=== PATIENT | male | born 1980 | race Caucasian/White ===

== ENCOUNTER 2018-02-01 23:52 | Emergency (ER) | payer OTHER ==
[2018-02-02] MEDS ORDERED: KETOROLAC 60 MG/2 ML VIAL IM STA
[2018-02-02 00:17] LABS: BILIRUBIN,URINE NEGATIVE (NEGATIVE); GLUCOSE, URINE (UA) NEGATIVE (NEGATIVE); LEUKOCYTE ESTERASE, URINE NEGATIVE (NEGATIVE); OCCULT BLOOD,URINE NEGATIVE (NEGATIVE)
[2018-02-02 00:19] LABS: BASOPHILS # (AUTO) 0.2 10^3/uL (0.0-0.1); BASOPHILS % (AUTO) 1.6 %; EOSINOPHILS # (AUTO) 0.3 10^3/uL (0.0-0.7); EOSINOPHILS % (AUTO) 1.9 %; LYMPHOCYTES # (AUTO) 2.9 10^3/uL (1.5-3.5); MEAN CORPUSCULAR HGB CONC 34.8 g/dL (32.0-36.0); MEAN CORPUSCULAR VOLUME 89.1 fL (80.0-94.0); MEAN PLATELET VOLUME 9.1 fL (7.4-11.4); MONOCYTES # (AUTO) 1.1 10^3/uL (0.0-1.0); MONOCYTES % (AUTO) 7.8 %; NEUTROPHILS # (AUTO) 9.3 10^3/uL (1.5-6.6); NEUTROPHILS % (AUTO) 67.7 %; PLT - PLATELET COUNT 209 10^3/uL (130-450); RED BLOOD COUNT 5.47 10^6/uL (4.70-6.10); RED CELL DISTRIBUTION WIDTH 14.1 % (12.0-15.0); WHITE BLOOD COUNT 13.7 x10^3/uL (4.8-10.8)
[2018-02-02] MEDS ORDERED: KETOROLAC 15 MG/ML VIAL IVP STA (00:20)
[2018-02-02 00:26] LABS: CLARITY,URINE CLEAR (CLEAR)
[2018-02-02 00:28] LABS: BACTERIA,URINE Rare /HPF (None Seen); RBC,URINE 0-5 /HPF (0-5); SQUAMOUS EPITHELIAL CELL,UR NONE SEEN (<= Few)
[2018-02-02 00:29] LABS: MUCUS,URINE Marked Strands
[2018-02-02 00:32] LABS: ALBUMIN 4.2 g/dL (3.2-5.5); ALBUMIN/GLOBULIN RATIO 1.1 (1.0-2.2); BILIRUBIN,TOTAL 1.1 mg/dL (0.2-1.0); CALCIUM 9.1 mg/dL (8.5-10.3); CREATININE 1.3 mg/dL (0.6-1.2); TOTAL PROTEIN 8.1 g/dL (6.7-8.2)
[2018-02-02] MEDS ORDERED: SODIUM CHLORIDE 0.9% 1,000 ML IV ONE ×2 (00:33→02:58)
--- NOTE | 2018-02-02 00:50 | ED Physician Documentation ---
PD HPI ABD PAIN - Stated complaint Stated Complaint: L SIDE PAIN - Chief complaint Chief Complaint: Abd Pain - History obtained from History obtained from: Patient - History of Present Illness Timing - onset: How many days ago (3) Timing - details: Gradual onset, Still present Quality: Cramping, Aching Location: LUQ, LLQ Radiation: Left flank Associated symptoms: Nausea. No: Fever, Vomiting, Diarrhea, Constipation Similar symptoms before: Work up / diagnostics, Treatment Recently seen: Not recently seen - Additional information Additional information: Patient is a 37 year old male presenting to the emergency department for abdominal pain. patient states that the pain has been going on for the last 4 days. patient states that he took an azo with no help. patient reports that he has had pancreatitis in the past and that it did feel a bit like this. Patient states that the etiology of the pancreatitis was unknown. patient reports that he did just come back from a vacation where he was eating out a lot and having a few drinks a day. Review of Systems Constitutional: denies: Fever, Chills GI: reports: Abdominal Pain, Nausea, Constipation. denies: Vomiting, Diarrhea : denies: Dysuria, Frequency, Hematuria Skin: denies: Rash PD PAST MEDICAL HISTORY - Past Medical History Cardiovascular: Hypertension - Past Surgical History Past Surgical History: Yes Ortho: Shoulder arthroplasty - Present Medications Home Medications: Ambulatory Orders Medication Instructions Recorded Confirmed Carboxymethylcellulose Sodium 02/01/18 [Refresh Tears] Naphazoline HCl/Pheniramine 02/01/18 [Naphcon-A Eye Drops] Sildenafil Citrate [Sildenafil] 02/01/18 amLODIPine [Norvasc] 2.5 mg PO DAILY 02/01/18 02/01/18 hydroCHLOROthiazide 1 tab PO DAILY 02/01/18 02/01/18 [Hydrochlorothiazide] Ondansetron Odt [Zofran] 4 mg TL Q6H PRN #14 tablet 02/02/18 Oxycodone HCl/Acetaminophen 1 - 2 each PO Q6H PRN #14 tablet 02/02/18 [Percocet 5-325 mg Tablet] - Allergies Allergies/Adverse Reactions: Allergies Allergy/AdvReac Type Severity Reaction Status Date / Time ampicillin Allergy Unknown Verified 02/01/18 23:58 - Social History Does the pt smoke?: No Smoking Status: Never smoker Does the pt drink ETOH?: Yes Does the pt have substance abuse?: No - Immunizations Immunizations are current?: Yes - POLST Patient has POLST: No PD ED PE NORMAL - Vitals Vital signs reviewed: Yes - General General: Alert and oriented X 3, No acute distress - HEENT HEENT: Atraumatic - Neck Neck: Supple, no meningeal sign - Cardiac Cardiac: RRR - Respiratory Respiratory: No respiratory distress - Abdomen Abdomen: Soft - Derm Derm: Normal color, Warm and dry, No rash - Extremities Extremities: No deformity - Neuro Neuro: Alert and oriented X 3 Eye Opening: Spontaneous Motor: Obeys Commands - Psych Psych: Normal mood PD ED PE EXPANDED - HEENT HEENT: Dry mucous membranes - Abdomen Abdomen: Tender to palpation, LUQ, LLQ Results - Vitals Vitals: Vital Signs - 24 hr 02/01/18 02/02/18 02/02/18 23:57 01:11 02:51 Temperature 36.8 C Heart Rate 86 88 70 Respiratory 16 16 16 Rate Blood Pressure 162/128 H 172/109 H 152/113 H O2 Saturation 99 96 94 02/02/18 04:37 Temperature Heart Rate 70 Respiratory 16 Rate Blood Pressure 155/112 H O2 Saturation 96 Oxygen O2 Source Room air - Labs Labs: Laboratory Tests 02/02/18 02/02/18 02/02/18 00:07 00:07 00:08 WBC 13.7 H RBC 5.47 Hgb 17.0 Hct 48.7 MCV 89.1 MCH 31.0 MCHC 34.8 RDW 14.1 Plt Count 209 MPV 9.1 Neut # (Auto) 9.3 H Lymph # (Auto) 2.9 [place] # (Auto) 1.1 H Eos # (Auto) 0.3 Baso # (Auto) 0.2 H Absolute Nucleated RBC 0.01 Nucleated RBC % 0.1 Sodium 135 Potassium 3.4 L Chloride 97 L Carbon Dioxide 28 Anion Gap 10.0 BUN 15 Creatinine 1.3 H Estimated GFR (MDRD) 62 L Glucose 125 H Calcium 9.1 Total Bilirubin 1.1 H AST 26 ALT 38 Alkaline Phosphatase 51 Total Protein 8.1 Albumin 4.2 Globulin 3.9 Albumin/Globulin Ratio 1.1 Lipase 38 Urine Color ORANGE Urine Clarity CLEAR Urine pH Ur Specific [place] Urine Protein Urine Glucose (UA) NEGATIVE Urine Ketones Urine Occult Blood NEGATIVE Urine Nitrite Urine Bilirubin NEGATIVE Urine Urobilinogen Ur Leukocyte Esterase NEGATIVE Urine RBC 0-5 Urine WBC 0-3 Ur Squamous Epith Cells NONE SEEN Urine Bacteria Rare Urine Mucus Marked Strands Ur Microscopic Review INDICATED Urine Culture Comments Not Reportable - Rads (name of study) ct abd pelvis Radiology: Final report received (findings consistent with pancreatitis no pancreatic necrosis) PD MEDICAL DECISION MAKING - ED course Complexity details: reviewed old records, reviewed results, re-evaluated patient , considered differential, d/w patient ED course: Patient was seen and examined at bedside. IV access was gained and labs were drawn. patient was treated with toradol and a fluid bolus. Imaging was ordered. When patient returned from imaging he was still in pain and was treated with IV morphine. Patient's results were reviewed and were consistent with pancreatitis. patient was given the option of admission vs outpatient. Patient states that he would try outpatient therapy. Patient was treated with a second liter of fluid. - Sepsis Event Vital Signs: Vital Signs - 24 hr 02/01/18 02/02/18 02/02/18 23:57 01:11 02:51 Temperature 36.8 C Heart Rate 86 88 70 Respiratory 16 16 16 Rate Blood Pressure 162/128 H 172/109 H 152/113 H O2 Saturation 99 96 94 02/02/18 04:37 Temperature Heart Rate 70 Respiratory 16 Rate Blood Pressure 155/112 H O2 Saturation 96 Oxygen O2 Source Room air Departure - Departure Disposition: 01 Home, Self Care Clinical Impression: Pancreatitis Condition: Good Instructions: ED Pancreatitis Follow-Up: Avelino Murillo MD [Primary Care Provider] - Within 3 Days Prescriptions: Ondansetron Odt [Zofran] 4 mg TL Q6H PRN #14 tablet PRN Reason: Nausea / Vomiting Oxycodone HCl/Acetaminophen [Percocet 5-325 mg Tablet] 1 - 2 each PO Q6H PRN # 14 tablet PRN Reason: pain Comments: Your symptoms are being caused by pancreatitis. You can try outpatient pain management and hydration but if your symptoms worsen you will need to return to the emergency department for hospitalization.
[2018-02-02] MEDS ORDERED: IOPAMIDOL-300 100 ML VIAL ONE (00:54)
[2018-02-02] MEDS ORDERED: IOPAMIDOL-300 100 ML VIAL IVP ONE (01:02)
[2018-02-02] MEDS ORDERED: MORPHINE 10 MG/ML VIAL IVP STA (01:13)
--- NOTE | 2018-02-02 01:55 | CT Report ---
EXAM: CT ABDOMEN AND PELVIS EXAM DATE: 02/02/2018 01:14 AM. CLINICAL HISTORY: Left lower and left upper quadrant region pain COMPARISONS: None. TECHNIQUE: Routine helical CT imaging was performed through the abdomen and pelvis. IV contrast: 100 mL Isovue-300. Enteric contrast: No. Reconstructions: Coronal and sagittal. In accordance with CT protocol optimization, one or more of the following dose reduction techniques w ere utilized for this exam: automated exposure control, adjustment of mA and/or KV based on patient s ize, or use of iterative reconstructive technique. FINDINGS: ABDOMEN: Liver: Moderate hepatic steatosis. Stomach/Distal Esophagus: No significant abnormality. Gallbladder: Contracted without definite calcified gallstones. Bile Ducts: No significant abnormality. Pancreas: There is fat stranding around the pancreas tail. Normal parenchymal enhancement. Spleen: No significant abnormality. Kidneys: No suspicious solid appearing lesion. A few small parenchymal cysts noted bilaterally. No hy dronephrosis. Adrenals: No significant abnormality. Bowel: No obstruction. Average fecal residual. Appendix: Normal. Lymph Nodes: No pathologically enlarged nodes. Vasculature: Normal caliber aorta. Fluid: No significant free fluid. Abdominal Wall: No significant abnormality. Other: No significant abnormality. PELVIS: Prostate and Seminal Vesicles: No significant abnormality. Bladder: No significant abnormality. Lymph Nodes: No pathologically enlarged nodes. Fluid: No significant free fluid. Other: None. BONES: No suspicious bony lesions. LOWER CHEST: No significant consolidation or effusion. IMPRESSION: 1. Acute pancreatitis affecting the distal body and tail. No organized collection. No evidence of nec rosis. 2. There is no bowel obstruction. Appendix is normal. Average amount of retained colon fecal material . [facility] Referring Provider Line: [phone] SITE ID: [id number]
--- NOTE | 2018-02-02 01:55 | CT Preliminary Report ---
Exam: CT ABDOMEN/PELVIS W/ IMPRESSION: 1. Acute pancreatitis affecting the distal body and tail. No organized collection. No evidence of nec rosis. 2. There is no bowel obstruction. Appendix is normal. Average amount of retained colon fecal material . [facility] SITE ID: [id number]
[2018-02-02 04:38] VITALS: BP 155/112
[2018-02-02] MEDS ORDERED: oxyCODONE/ACET 5/325 Prepack 4 PO STA (04:38)
[2018-02-02] MEDS ORDERED: ONDANSETRON ODT 4 MG Prepack 2 TL PRN (04:38)
== END 2018-02-02 04:46 | disposition home or self-care (01) ==
LOC: ED 23:52
DX: K85.90 Acute pancreatitis without necrosis or infection, unspecified (principal); I10 Essential (primary) hypertension
CPT/HCPCS: 36415; 74177; 80053; 81001; 83690; 85025; 96361; 96374; 96375; 99283; 99284; Q9967; 81003; 87086

== ENCOUNTER 2018-02-02 11:41 | Inpatient (IN) | payer OTHER ==
[2018-02-02 12:42] LABS: BASOPHILS # (AUTO) 0.1 10^3/uL (0.0-0.1); BASOPHILS % (AUTO) 0.5 %; EOSINOPHILS # (AUTO) 0.1 10^3/uL (0.0-0.7); EOSINOPHILS % (AUTO) 0.9 %; HGB - HEMOGLOBIN 16.2 g/dL (14.0-18.0); LYMPHOCYTES # (AUTO) 1.9 10^3/uL (1.5-3.5); LYMPHOCYTES % (AUTO) 12.9 %; MEAN CORPUSCULAR HEMOGLOBIN 30.8 pg (27.0-31.0); MEAN PLATELET VOLUME 8.5 fL (7.4-11.4); MONOCYTES # (AUTO) 1.4 10^3/uL (0.0-1.0); MONOCYTES % (AUTO) 9.3 %; NEUTROPHILS # (AUTO) 11.2 10^3/uL (1.5-6.6); NEUTROPHILS % (AUTO) 76.4 %; PLT - PLATELET COUNT 178 10^3/uL (130-450); RED BLOOD COUNT 5.25 10^6/uL (4.70-6.10); RED CELL DISTRIBUTION WIDTH 13.7 % (12.0-15.0); WHITE BLOOD COUNT 14.7 x10^3/uL (4.8-10.8)
[2018-02-02 12:53] LABS: ALBUMIN/GLOBULIN RATIO 1.1 (1.0-2.2); BILIRUBIN,TOTAL 1.9 mg/dL (0.2-1.0); CALCIUM 8.6 mg/dL (8.5-10.3); TOTAL PROTEIN 7.8 g/dL (6.7-8.2)
[2018-02-02] MEDS ORDERED: ONDANSETRON 4 MG/2 ML VIAL IVP STA (13:22)
[2018-02-02] MEDS ORDERED: SODIUM CHLORIDE 0.9% 1,000 ML IV ONE ×2 (13:22→13:23)
[2018-02-02] MEDS ORDERED: MORPHINE 10 MG/ML VIAL IVP STA (13:23)
--- NOTE | 2018-02-02 13:24 | ED Physician Documentation ---
PD HPI ABD PAIN - Stated complaint Stated Complaint: ABDOMINAL PAIN - Chief complaint Chief Complaint: Abd Pain - History obtained from History obtained from: Patient - History of Present Illness Timing - onset: Today Timing - duration: Days Timing - details: Still present Pain level max: 9 Pain level now: 9 Quality: Aching, Pain Location: Epigastric Radiation: Other (To the mid back) Improved by: Other (Tried taking the percocet this morning without relief) Worsened by: Palpation Associated symptoms: Nausea, Vomiting. No: Fever, Hematemesis, Diarrhea, Constipation, Hematochezia, Dysuria - Additional information Additional information: Patient was seen here last night for same, has a CT scan showing acute pancreatitis. States this occurred approximately 3 years ago and thought to be due to hydrochlorothiazide. He was restarted on hydrochlorothiazide approximately 1 year ago. States his pain became worse today and is not controlled with the pain medication at home. Also has had increased vomiting today despite the Zofran. No fevers. Review of Systems Ten Systems: 10 systems reviewed and negative Constitutional: denies: Fever, Chills Ears: denies: Ear pain Nose: denies: Rhinorrhea / runny nose, Congestion Throat: denies: Sore throat Cardiac: denies: Chest pain / pressure Respiratory: denies: Cough GI: denies: Bloody / black stool : denies: Dysuria Skin: denies: Rash Musculoskeletal: denies: Neck pain, Back pain Neurologic: denies: Headache PD PAST MEDICAL HISTORY - Past Medical History Cardiovascular: Hypertension - Past Surgical History Past Surgical History: Yes Ortho: Shoulder arthroplasty - Present Medications Home Medications: Ambulatory Orders Medication Instructions Recorded Confirmed amLODIPine [Norvasc] 2.5 mg PO DAILY 02/01/18 02/02/18 hydroCHLOROthiazide 25 mg PO DAILY 02/01/18 02/02/18 [Hydrochlorothiazide] Carboxymethylcellulose Sodium 1 drops EACHEYE PRN PRN 02/02/18 02/02/18 [Refresh Tears] Fluticasone [Flonase] 2 sprays SARA DAILY PRN 02/02/18 02/02/18 Loratadine 10 mg PO DAILY 02/02/18 02/02/18 Montelukast Sodium 10 mg PO DAILY 02/02/18 02/02/18 Naphazoline HCl/Pheniramine 1 drops EACHEYE PRN PRN 02/02/18 02/02/18 [Naphcon-A Eye Drops] Omeprazole [Omeprazole] 20 mg PO QDAC 02/02/18 02/02/18 Sildenafil Citrate [Viagra] 50 mg PO PRN PRN 02/02/18 02/02/18 Sodium Chloride [Sodium Chloride] 1 drops EACHEYE PRN PRN 02/02/18 02/02/18 Sodium Chloride [Sodium Chloride] 1 drops EACHEYE PRN PRN 02/02/18 02/02/18 - Allergies Allergies/Adverse Reactions: Allergies Allergy/AdvReac Type Severity Reaction Status Date / Time ampicillin Allergy Unknown Verified 02/02/18 11:57 - Social History Does the pt smoke?: No Smoking Status: Never smoker Does the pt drink ETOH?: Yes Does the pt have substance abuse?: No - Immunizations Immunizations are current?: Yes - POLST Patient has POLST: No PD ED PE NORMAL - Vitals Vital signs reviewed: Yes - General General: Alert and oriented X 3, No acute distress - HEENT HEENT: Moist mucous membranes - Neck Neck: Supple, no meningeal sign - Cardiac Cardiac: RRR - Respiratory Respiratory: No respiratory distress, Clear bilaterally - Abdomen Abdomen: Non distended, Other (Tender palpation epigastric without peritoneal signs) - Derm Derm: Warm and dry - Neuro Neuro: Alert and oriented X 3 - Psych Psych: Normal mood, Normal affect Results - Vitals Vitals: Vital Signs - 24 hr 02/02/18 11:53 Temperature 36.5 C Heart Rate 82 Respiratory 18 Rate Blood Pressure 138/89 H O2 Saturation 98 Oxygen O2 Source Room air - Labs Labs: Laboratory Tests 02/02/18 02/02/18 12:35 12:35 WBC 14.7 H RBC 5.25 Hgb 16.2 Hct 46.2 MCV 88.0 MCH 30.8 MCHC 35.0 RDW 13.7 Plt Count 178 MPV 8.5 Neut # (Auto) 11.2 H Lymph # (Auto) 1.9 [place] # (Auto) 1.4 H Eos # (Auto) 0.1 Baso # (Auto) 0.1 Absolute Nucleated RBC 0.01 Nucleated RBC % 0.0 Sodium 135 Potassium 3.8 Chloride 101 Carbon Dioxide 27 Anion Gap 7.0 BUN 17 Creatinine 1.0 Estimated GFR (MDRD) 84 L Glucose 92 Calcium 8.6 Total Bilirubin 1.9 H AST 20 ALT 32 Alkaline Phosphatase 53 Total Protein 7.8 Albumin 4.0 Globulin 3.8 Albumin/Globulin Ratio 1.1 Lipase 25 PD MEDICAL DECISION MAKING - ED course Complexity details: reviewed old records (last night's ED visit), reviewed results, re-evaluated patient, considered differential, d/w patient, d/w senior recruitment consultant ED course: Patient is a 37-year-old male with CT confirmed pancreatitis last night. Uncontrolled pain and continued vomiting today. Given IV fluids, pain meds and will admit for bowel rest, pain control. He is well-appearing, nontoxic. Discussed the case with Dr. Sanabria, hospitalist who accepts. Possible this is secondary to his hydrochlorothiazide again. This document was made in part using voice recognition software. While efforts are made to proofread this document, sound alike and grammatical errors may occur. - Sepsis Event Vital Signs: Vital Signs - 24 hr 02/02/18 11:53 Temperature 36.5 C Heart Rate 82 Respiratory 18 Rate Blood Pressure 138/89 H O2 Saturation 98 Oxygen O2 Source Room air Departure - Departure Disposition: ED Place in Observation Clinical Impression: Pancreatitis Qualifiers: Chronicity: acute Pancreatitis type: unspecified pancreatitis type Acute pancreatitis complication: no infection or necrosis Qualified Code(s): K85.90 - Acute pancreatitis without necrosis or infection, unspecified Condition: Stable Discharge Date/Time: 02/02/18 14:33
[2018-02-02] MEDS ORDERED: SODIUM CHLORIDE FLUSH 0.9% 10 ML SYRINGE IVP PRN (13:38)
[2018-02-02] MEDS: SODIUM CHLORIDE FLUSH 0.9% 10 ML SYRINGE IVP SCH ×2 (14:26→23:36)
--- NOTE | 2018-02-02 14:44 | HISTORY & PHYSICAL EXAMINATION ---
Chief Complaint - Chief Complaint Chief Complaint: abdominal pain History of Present Illness - Admitted From Admitted From:: ED - History Obtained From Records Reviewed: yes History obtained from: chart review, patient Exam Limitations: none - History of Present Illness HPI Comment/Other: Ghulam Bray is a well-appearing, mildly obese 37-year old male with a past medical history of HTN, fatty liver, GERD, chronic constipation, hemorrhoids, CHARO-wears CPAP at home, thoracic outlet syndrome-chronic numbness in bilateral fingertips, eczema, detached retina, pancreatititis, and erectile dysfunction. From August to October of this year he states that he followed the "keto diet", which sounds similar to the Atkins diet and actually was successful by losing 30 pounds. He just visited his PCP this past for URI symptoms and was prescribed Claritin and flonase spray. He came to the ED last evening after having epigastric abdominal pain, nausea, and vomiting. At first he thought it may have been caused by spicy chili that his made, but this pain was similar to pain that he had ~3 years ago because he also noted it to be radiating to his back side. An abdominal CT was completed in the ED which confirmed pancreatitits and he was sent home with zofran and pain medication. This pain continued and actually became worse after taking the oral medications, so he arrived again in the ED early this morning with the same symptoms accompanied by nausea and vomiting. WBC count was slightly elevated at 14.7, normal lipase, afebrile, mild hypertension at 138 /89, and an elevated bilirubin at 1.9. He will be admitted to observation to manage his symptoms and if he becomes worse a call to our GI team may occur. 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 He lives at home with his and 4 children ages 1,3,6, & 9. He denies current tobacco or illicit drug use. He was dependent on cigarettes from age [age]. He occasionally drinks alcohol, but denies binge drinking. He wishes to be a FULL code. - Substance History Use: Uses substance without health or social issues: NONE Abuse: Recurrent use of substance despite neg consequences: NONE Dependence: Experiences withdrawal or developed tolerances: NONE - POLST Patient has POLST: No POLST Status: Full Code Meds/Allgy - Home Medications Home Medications: Ambulatory Orders Medication Instructions Recorded Confirmed amLODIPine [Norvasc] 2.5 mg PO DAILY 02/01/18 02/02/18 hydroCHLOROthiazide 25 mg PO DAILY 02/01/18 02/02/18 [Hydrochlorothiazide] Carboxymethylcellulose Sodium 1 drops EACHEYE PRN PRN 02/02/18 02/02/18 [Refresh Tears] Fluticasone [Flonase] 2 sprays SARA DAILY PRN 02/02/18 02/02/18 Loratadine 10 mg PO DAILY 02/02/18 02/02/18 Montelukast Sodium 10 mg PO DAILY 02/02/18 02/02/18 Naphazoline HCl/Pheniramine 1 drops EACHEYE PRN PRN 02/02/18 02/02/18 [Naphcon-A Eye Drops] Omeprazole [Omeprazole] 20 mg PO QDAC 02/02/18 02/02/18 Sildenafil Citrate [Viagra] 50 mg PO PRN PRN 02/02/18 02/02/18 Sodium Chloride [Sodium Chloride] 1 drops EACHEYE PRN PRN 02/02/18 02/02/18 Sodium Chloride [Sodium Chloride] 1 drops EACHEYE PRN PRN 02/02/18 02/02/18 - Allergies Allergies/Adverse Reactions: Allergies Allergy/AdvReac Type Severity Reaction Status Date / Time ampicillin Allergy Unknown Verified 02/02/18 11:57 Review of Systems - Constitutional Constitutional: reports: Fatigue, Poor appetite - Eyes Eyes: reports: Other (history of detached retina.) - Ears, Nose & Throat Ears, Nose & Throat: reports: Ear pain, Hearing loss, Nasal congestion, Postnasal drainage - Respiratory Respiratory: reports: Cough - Gastrointestinal Gastrointestinal: reports: Abdominal pain, Abdominal distention, Constipation, Nausea, Vomiting, Reflux/heartburn, Poor appetite - Genitourinary Genitourinary: reports: Sexual dysfunction (history of erectile dysfunction.) - Musculoskeletal Musculoskeletal: reports: Limited range of motion (bilateral shoulders caused by thorasic outlet syndrome.) - Integumentary Integumentary: reports: Other (history of eczema) - All Other Systems All Other Systems: reports: Reviewed and negative Exam - Vital Signs Reviewed Vital Signs: Yes Vital Signs: Vital Signs x48h Temp Pulse Pulse Resp BP BP Pulse Ox 02/02/18 14:35 36.5 C 79 18 146/94 H 99 02/02/18 14:22 76 16 126/84 H 94 - Physical Exam General Appearance: positive: Alert, Moderate distress Eyes Bilateral: positive: Normal inspection, PERRL ENT: positive: Pharynx nml, No signs of dehydration, Pharyngeal erythema, Other (abnormal tympanic membranes, +light relfex and fluid noted behind bilaterally.) Neck: positive: Thyroid nml, No JVD, Lymphadenopathy (R), Lymphadenopathy (L), Stiff neck, Other (large neck circumference.) Respiratory: positive: Chest non-tender, No respiratory distress, Breath sounds nml Cardiovascular: positive: Regular rate & rhythm, No murmur, No gallop Peripheral Pulses: positive: 2+ Abdomen: positive: Tenderness, Abnml bowel sounds, Other Back: positive: Nml inspection Skin: positive: No rash, Warm, Dry Extremities: positive: Non-tender, Full ROM, Nml appearance, No pedal edema, Joint swelling Neurologic/Psychiatric: positive: Oriented x3, CN's nml (2-12), Motor nml, Sensation nml, Mood/affect nml Reflexes: Bicep (R): 3+, Bicep (L): 3+ Conclusion/Plan - Problem List (1) Acute pancreatitis Conclusion/Plan: As per preliminary abdominal CT, this appears to be pancreatitits. I have admitted him to observation in hopes that this will soon pass with IV pain control, and bowel rest. Plan: Continue to treat accordingly and contact general surgery if the patient worsens. Qualifiers: Pancreatitis type: idiopathic (2) Hypertension Conclusion/Plan: The patient is prescribed HCTZ and amlodipine at home for hypertension. Today, his blood pressure is elevated at 126/84. Plan: Hold the HCTZ as thiazides are considered as a possible cause of pancreatitits. I will add the Norvasc possibly in the AM. Qualifiers: Hypertension type: essential hypertension Qualified Code(s): I10 - Essential (primary) hypertension (3) Abdominal pain Conclusion/Plan: The patient rates his abdominal pain as a 9 out of 10 and points to his upper abdomen and left mid abdomen. He states that this began yesterday and was treated in the ED, sent home, and came back early this AM. Plan: treat with IV dilaudid, IV protonix, IV reglan, and scheduled IV tylenol. Continue NPO status. (4) Intractable cyclical vomiting with nausea Conclusion/Plan: The patient has had this accompanied by abdominal pain. He has been given zofran and compazine, but continues to feel nauseated. He denies emesis for the past several hours. Plan: continue IV meds for symptom control. (5) CHARO (obstructive sleep apnea) Conclusion/Plan: The patient states that he has had CHARO for the past 2 years and his is planning on bringing in his home unit. He denies other chronic lung diseases such as asthma, or recent pneumonia. Respiratory care to manage home unit order to ensure safety of use. Plan: Continue home CPAP. Obtain echocardiogram. (6) Chronic sinusitis Conclusion/Plan: Upon exam on admission, the patient is noted to have +light reflex noted on bilateral tympanic membranes, fluid noted behind both. The patient admits to ongoing ear pain and mild hearing loss in his left ear. He uses his home CPAP, and this could be a likely cause. He admits to [facility] his [facility] Plan: Afrin spray x3 days, nasal saline PRN and scheduled Nasonex. Qualifiers: Sinusitis location: unspecified location Qualified Code(s): J32.9 - Chronic sinusitis, unspecified (7) Fatty liver Conclusion/Plan: The patient admits to a history of this and as per abdominal CT report it states there is moderate hepatic steatosis. His biggest risk factor of progression of HUTCHINS is his elevated BMI of 31.2, and increased waist circumference. Plan: Patient should consider a weight loss management program at a later point. - Lab Results Lab results reviewed: Yes Fish Bones: 02/02/18 12:35 02/02/18 12:35 - Diagnostic Imaging Results Diagnostic Imaging Results: positive: Prelim report reviewed, Final report reviewed Diagnostic Imaging Results Comments: EXAM: CT ABDOMEN AND PELVIS EXAM DATE: 02/02/2018 01:14 AM. CLINICAL HISTORY: Left lower and left upper quadrant region pain COMPARISONS: None. TECHNIQUE: Routine helical CT imaging was performed through the abdomen and pelvis. IV contrast: 100 mL Isovue-300. Enteric contrast: No. Reconstructions: Coronal and sagittal. In accordance with CT protocol optimization, one or more of the following dose reduction techniques were utilized for this exam: automated exposure control, adjustment of mA and/or KV based on patient size, or use of iterative reconstructive technique. FINDINGS: ABDOMEN: Liver: Moderate hepatic steatosis. Stomach/Distal Esophagus: No significant abnormality. Gallbladder: Contracted without definite calcified gallstones. Bile Ducts: No significant abnormality. Pancreas: There is fat stranding around the pancreas tail. Normal parenchymal enhancement. Spleen: No significant abnormality. Kidneys: No suspicious solid appearing lesion. A few small parenchymal cysts noted bilaterally. No hydronephrosis. Adrenals: No significant abnormality. Bowel: No obstruction. Average fecal residual. Appendix: Normal. Lymph Nodes: No pathologically enlarged nodes. Vasculature: Normal caliber aorta. Fluid: No significant free fluid. Abdominal Wall: No significant abnormality. Other: No significant abnormality. PELVIS: Prostate and Seminal Vesicles: No significant abnormality. Bladder: No significant abnormality. Lymph Nodes: No pathologically enlarged nodes. Fluid: No significant free fluid. Other: None. BONES: No suspicious bony lesions. LOWER CHEST: No significant consolidation or effusion. IMPRESSION: 1. Acute pancreatitis affecting the distal body and tail. No organized collection. No evidence of necrosis. 2. There is no bowel obstruction. Appendix is normal. Average amount of retained colon fecal material. - EKG Results EKG Interpreted Independently: Yes Core Measures - Anticipated LOS I expect patient to be DC'd or transferred within 96 hours.: Yes - DVT/VTE - Prophylaxis VTE/DVT Device ordered at admit?: Yes VTE/DVT Prophylaxis med ordered at admit?: Yes - Stroke - Rehab Assessment Rehab services assessment to be ordered?: No Not Ordered - Medical Reason: Contraindicated - AMI - Statin at Admit Aspirin Prescribed on Admit: No Not Ordered - Medical Reason: Contraindicated
[2018-02-02] MEDS: METOCLOPRAMIDE 10 MG/2 ML VIAL IVP SCH ×3 (14:59→21:52)
[2018-02-02] MEDS: ACETAMINOPHEN 1,000 MG/100 ML 100 ML IV SCH ×2 (15:01→21:40)
[2018-02-02] MEDS ORDERED: METOCLOPRAMIDE 10 MG/2 ML VIAL ONE (15:08)
[2018-02-02] MEDS ORDERED: SODIUM CHLORIDE 0.65% NASAL SPRAY NAS PRN (15:59)
[2018-02-02] MEDS ORDERED: PSEUDOEPHEDRINE 30 MG TABLET PO PRN (16:00)
[2018-02-02] MEDS: OXYMETAZOLINE NASAL SPRAY NAS SCH ×2 (16:38→21:54)
[2018-02-02] MEDS: SENNA SYRUP 8.8 MG/5 ML UDC PO SCH ×2 (16:39→21:42)
[2018-02-02] MEDS: PANTOPRAZOLE 40 MG VIAL IVP SCH ×2 (16:40→21:43)
[2018-02-02] MEDS: HYDROmorphone 1 MG/ML CARPUJECT IVP PRN ×3 (16:42→21:58)
[2018-02-02] MEDS ORDERED: SODIUM CHLORIDE EACHEYE PRN ×2 (16:51)
[2018-02-02] MEDS ORDERED: CARBOXYMETHYLCELLULOSE SODIUM EACHEYE PRN (16:51)
[2018-02-02] MEDS ORDERED: [UNRECOGNIZED DRUG - OTHER] EACHEYE PRN ×2 (16:51)
[2018-02-02] MEDS: ENOXAPARIN 40 MG/0.4 ML SYRINGE SUBQ SCH (17:01)
[2018-02-02 17:39] LABS: MUDS CUTOFF CONCENTRATIONS CUTOFF CONC BELOW:
[2018-02-02 17:40] LABS: BILIRUBIN,URINE NEGATIVE (NEGATIVE); GLUCOSE, URINE (UA) NEGATIVE (NEGATIVE); KETONES,URINE (UA) 15 mg/dL (NEGATIVE); LEUKOCYTE ESTERASE, URINE NEGATIVE (NEGATIVE); NITRITE,URINE NEGATIVE (NEGATIVE); OCCULT BLOOD,URINE NEGATIVE (NEGATIVE); PROTEIN,URINE TRACE mg/dL (NEGATIVE); UROBILINOGEN,URINE 0.2 (NORMAL) E.U./dL (NORMAL)
[2018-02-02 17:42] LABS: CLARITY,URINE CLEAR (CLEAR)
[2018-02-02 17:50] LABS: AMPHETAMINE SCREEN,URINE NEGATIVE (NEGATIVE); BENZODIAZEPINES SCREEN, URINE NEGATIVE (NEGATIVE); COCAINE SCREEN URINE NEGATIVE (NEGATIVE); METHADONE SCREEN, URINE NEGATIVE (NEGATIVE); METHAMPHETAMINES SCREEN, URINE NEGATIVE (NEGATIVE); OPIATE SCREEN, URINE POSITIVE (NEGATIVE); TRICYCLIC ANTIDEPRESSANT,URINE NEGATIVE (NEGATIVE)
[2018-02-02 17:51] LABS: OXYCODONE SCREEN, URINE POSITIVE (NEGATIVE); PROPOXYPHENE SCREEN, URINE NEGATIVE (NEGATIVE)
[2018-02-02] MEDS: SODIUM CHLORIDE 0.9% 1,000 ML IV SCH (18:36)
[2018-02-02] MEDS: ONDANSETRON 4 MG/2 ML VIAL IVP PRN (18:36)
[2018-02-02 18:51] LABS: MAGNESIUM 1.8 mg/dL (1.7-2.8)
[2018-02-02 18:52] LABS: HEMOGLOBIN A1C 0.45 g/dL; HEMOGLOBIN A1C % 4.7 % (4.6-6.2)
[2018-02-02 18:53] LABS: ALBUMIN 3.3 g/dL (3.2-5.5); BILIRUBIN,TOTAL 1.6 mg/dL (0.2-1.0); CALCIUM 7.8 mg/dL (8.5-10.3); CREATININE 0.9 mg/dL (0.6-1.2); TOTAL PROTEIN 6.7 g/dL (6.7-8.2)
[2018-02-02 18:57] LABS: CHOLESTEROL 120 mg/dL; HDL CHOLESTEROL 30 mg/dL; LDL CHOLESTEROL,CALCULATED 67 mg/dL; LDL/HDL RATIO 2.2 (<3.6); VLDL CHOLESTEROL 23 mg/dL
[2018-02-02] MEDS ORDERED: MAGNESIUM SULFATE 1 GM in SODIUM CHLORIDE 0.9% 50 ML IV SCH (19:46)
[2018-02-02] MEDS ORDERED: POTASSIUM CHLORIDE INJ 40 MEQ in SODIUM CHLORIDE 0.9% 480 ML IV ONE (19:47)
[2018-02-02] MEDS ORDERED: SODIUM CHLORIDE 0.9% 50 ML IV ONE (21:34)
[2018-02-02] MEDS: POTASSIUM CHLOR 10 MEQ/100 ML 10 MEQ/100 ML BAG IV SCH ×2 (21:50→23:36)
[2018-02-02] MEDS ORDERED: MAGNESIUM SULFATE 1 GM/2 ML VIAL ONE (22:35)
[2018-02-03] MEDS: POTASSIUM CHLOR 10 MEQ/100 ML 10 MEQ/100 ML BAG IV SCH ×2 (00:45→01:47)
[2018-02-03] MEDS: ACETAMINOPHEN 1,000 MG/100 ML 100 ML IV SCH ×4 (02:58→20:45)
[2018-02-03] MEDS: HYDROmorphone 1 MG/ML CARPUJECT IVP PRN ×5 (03:12→20:48)
[2018-02-03] MEDS: ONDANSETRON 4 MG/2 ML VIAL IVP PRN ×3 (03:18→20:49)
[2018-02-03] MEDS: SODIUM CHLORIDE 0.9% 1,000 ML IV SCH (04:42)
[2018-02-03 06:28] LABS: ALBUMIN 3.3 g/dL (3.2-5.5); BILIRUBIN,TOTAL 1.5 mg/dL (0.2-1.0); CALCIUM 7.6 mg/dL (8.5-10.3); CREATININE 0.8 mg/dL (0.6-1.2); TOTAL PROTEIN 6.6 g/dL (6.7-8.2)
[2018-02-03] MEDS: SENNA SYRUP 8.8 MG/5 ML UDC PO SCH ×2 (08:20→20:35)
[2018-02-03] MEDS: POLYETHYLENE GLYCOL 3350 17 GM PACKET PO SCH (08:20)
[2018-02-03] MEDS: METOCLOPRAMIDE 10 MG/2 ML VIAL IVP SCH ×4 (08:20→20:54)
[2018-02-03] MEDS: PANTOPRAZOLE 40 MG VIAL IVP SCH (08:20)
[2018-02-03] MEDS: OXYMETAZOLINE NASAL SPRAY NAS SCH ×2 (08:22→20:46)
[2018-02-03] MEDS ORDERED: NAPHAZOLINE HCL EACHEYE PRN (09:00)
[2018-02-03] MEDS ORDERED: PHENIRAMINE EACHEYE PRN (09:00)
[2018-02-03 09:33] LABS: AMYLASE 42 U/L (28-100); LIPASE 27 U/L (22-51)
[2018-02-03] MEDS: SODIUM CHLORIDE FLUSH 0.9% 10 ML SYRINGE IVP SCH ×3 (09:54→23:40)
[2018-02-03] MEDS: FLUTICASONE NASAL SPRAY NAS SCH (10:43)
[2018-02-03] MEDS ORDERED: amLODIPine 5 MG TABLET PO SCH ×2 (11:00→14:25)
[2018-02-03] MEDS: SPIRONOLACTONE 25 MG TABLET PO SCH (11:52)
[2018-02-03] MEDS: NS W/20 MEQ KCL 1,000 ML IV SCH ×3 (13:11→21:01)
[2018-02-03] MEDS ORDERED: METHYLNALTREXONE 12 MG/0.6 ML VIAL SUBQ SCH (14:27)
--- NOTE | 2018-02-03 14:29 | PROVIDER PROGRESS NOTE ---
Subjective - Prog Note Date Prog Note Date: 02/03/18 Prog Note Time: 14:28 - Subjective Pt reports feeling: Improved, No change Subjective: Ghulam is improved since admission, but continues to have right and mid abdominal discomfort. He denies SOB, chest pain, nausea, vomiting or a new cough. He has had good results after taking the Senna, and tolerating a full liquid diet with no increase of pain. Current Medications - Current Medications Current Medications: Active Medications Amlodipine Besylate (Norvasc) 5 mg PO DAILY [facility] Enoxaparin Sodium (Lovenox) 40 mg SUBQ Q24H [facility] Last Admin: 02/02/18 17:01 Dose: 40 mg Fluticasone Propionate (Flonase) 2 sprays SARA DAILY [facility] Last Admin: 02/03/18 10:43 Dose: 2 sprays Hydromorphone HCl (Dilaudid Inj Carp) 1 mg IVP Q1H PRN PRN Reason: PAIN Last Admin: 02/03/18 13:11 Dose: 1 mg Acetaminophen (Ofirmev) 100 mls @ 400 mls/hr IV Q6H [facility] Last Infusion: 02/03/18 09:54 Dose: Infused Potassium Chloride/Sodium Chloride (Normal Saline 0.9% W/20 Meq Kcl) 1,000 mls @ 125 mls/hr IV .Q8H [facility] Last Admin: 02/03/18 13:28 Dose: 125 mls/hr Magnesium Oxide (Mag Ox) 400 mg PO DAILYWM [facility] Methylnaltrexone Cascade (Relistor) 8 mg SUBQ ONCE ONE Stop: 02/03/18 14:28 Metoclopramide HCl (Reglan Inj) 5 mg IVP QID [facility] Last Admin: 02/03/18 13:11 Dose: 5 mg Montelukast Sodium (Singulair) 10 mg PO QPM [facility] Multi-Ingredient Mouthwash/Gargle () 30 ml PO BID [facility] Non-Formulary Medication (Sodium Chloride [Sodium Chloride]) 1 drops EACHEYE PRN PRN PRN Reason: IRRITATION Ondansetron HCl (Zofran Inj) 4 mg IVP Q4HR PRN PRN Reason: Nausea / Vomiting Last Admin: 02/03/18 03:18 Dose: 4 mg Oxymetazoline HCl (Afrin) 2 sprays SARA BID [facility] Stop: 02/05/18 15:57 Last Admin: 02/03/18 08:22 Dose: 2 spray Pantoprazole Sodium (Protonix) 40 mg PO QDAC [facility] (Naphazoline Hcl/Pheniramine [Naphcon -A Eye Drops] 1 Drops) 1 each EACHEYE PRN PRN PRN Reason: EYE IRRITATION Polyethylene Glycol (Miralax) 17 gm PO DAILY [facility] Last Admin: 02/03/18 08:20 Dose: 17 gm Pseudoephedrine HCl (Sudafed) 30 mg PO Q6HR PRN PRN Reason: Cold Symptons Senna (Senokot Syrup) 8.8 mg PO BID [facility] Last Admin: 02/03/18 08:20 Dose: 8.8 mg Sodium Chloride (Normal Saline Flush 0.9%) 10 ml IVP PRN PRN PRN Reason: NEEDED PER PROVIDER ORDERS Sodium Chloride (Normal Saline Flush 0.9%) 10 ml IVP 0100,0900,1700 [facility] Last Admin: 02/03/18 09:54 Dose: Not Given Sodium Chloride ([place]) 2 sprays SARA Q4HR PRN PRN Reason: Nasal Congestion Spironolactone (Aldactone) 25 mg PO DAILY [facility] Last Admin: 02/03/18 11:52 Dose: 25 mg amLODIPine [Norvasc] 2.5 mg PO DAILY 02/01/18 hydroCHLOROthiazide [Hydrochlorothiazide] 25 mg PO DAILY 02/01/18 Carboxymethylcellulose Sodium [Refresh Tears] 1 drops EACHEYE PRN PRN 02/02/18 Fluticasone [Flonase] 2 sprays SARA DAILY PRN 02/02/18 Loratadine 10 mg PO DAILY 02/02/18 Montelukast Sodium 10 mg PO DAILY 02/02/18 Naphazoline HCl/Pheniramine [Naphcon-A Eye Drops] 1 drops EACHEYE PRN PRN Omeprazole [Omeprazole] 20 mg PO QDAC 02/02/18 Sildenafil Citrate [Viagra] 50 mg PO PRN PRN 02/02/18 Sodium Chloride [Sodium Chloride] 1 drops EACHEYE PRN PRN 02/02/18 Sodium Chloride [Sodium Chloride] 1 drops EACHEYE PRN PRN 02/02/18 Objective - Vital Signs/Intake & Output Reviewed Vital Signs: Yes Vital Signs: Vital Signs x48h Temp Pulse Resp BP Pulse Ox 02/03/18 07:55 36.9 C 81 18 140/87 H 97 Intake & Output: Intake & Output 01/31/18 02/01/18 02/02/18 02/03/18 23:59 23:59 23:59 23:59 Intake Total 2352 4500 Output Total 250 400 Balance 2102 4100 - Objective General Appearance: positive: No acute distress, Alert Eyes Bilateral: positive: Normal inspection, PERRL ENT: positive: ENT inspection nml, Pharynx nml, No signs of dehydration, Pharyngeal erythema Neck: positive: Nml inspection, Thyroid nml, No JVD, Trachea midline, Lymphadenopathy (R), Lymphadenopathy (L), Stiff neck Respiratory: positive: Chest non-tender, No respiratory distress, Breath sounds nml Cardiovascular: positive: Regular rate & rhythm, No murmur, No gallop Peripheral Pulses: 2+ Radial (R), 2+ Radial (L) Abdomen: positive: Nml bowel sounds, Tenderness (tenderness to right and mid abdomen, not worse with palpation.), Guarding Back: positive: Nml inspection Skin: positive: No rash, Warm, Dry Extremities: positive: Non-tender, Full ROM, Nml appearance, No pedal edema Neurologic/Psychiatric: positive: Oriented x3, CN's nml (2-12), Motor nml, Sensation nml Reflexes: Bicep (R): 3+, Bicep (L): 3+ - Lab Results Fish Bones: 02/04/18 05:52 02/04/18 06:24 Other Labs: Lab Results x24hrs 02/03/18 02/03/18 02/02/18 Range/Units 05:44 05:44 18:28 Sodium 132 L (135-145) mmol/L Potassium 3.6 (3.5-5.0) mmol/L Chloride 102 (101-111) mmol/L Carbon Dioxide 23 (21-32) mmol/L Anion Gap 7.0 (6-13) BUN 14 (6-20) mg/dL Creatinine 0.8 (0.6-1.2) mg/dL Estimated GFR (MDRD) 108 (>89) Glucose 84 (70-100) mg/dL Glycated Hemoglobin (4.6-6.2) % Estim Average Glucose (70-100) Calcium 7.6 L (8.5-10.3) mg/dL Magnesium (1.7-2.8) mg/dL Total Bilirubin 1.5 H (0.2-1.0) mg/dL GGT (8-55) IU/L AST 16 (10-42) IU/L ALT 23 (10-60) IU/L Alkaline Phosphatase 44 (42-121) IU/L C-Reactive Protein (0-1.0) mg/dL B-Natriuretic Peptide (5-100) pg/mL Total Protein 6.6 L (6.7-8.2) g/dL Albumin 3.3 (3.2-5.5) g/dL Globulin 3.3 (2.1-4.2) g/dL Albumin/Globulin Ratio 1.0 (1.0-2.2) Triglycerides 114 ( - 149) mg/dL Cholesterol 120 ( - 199) mg/dL LDL Cholesterol, Calc 67 ( - 129) mg/dL VLDL Cholesterol 23 mg/dL HDL Cholesterol 30 L (60 - ) mg/dL LDL/HDL Ratio 2.2 (<3.6) Cholesterol/HDL Ratio 4.0 (<5.0) Amylase 42 (28-100) U/L Lipase 27 (22-51) U/L TSH (0.34-5.60) uIU/mL Urine Color Urine Clarity (CLEAR) Urine pH (5.0-7.5) PH Ur Specific [place] (1.002-1.030) Urine Protein (NEGATIVE) mg/dL Urine Glucose (UA) (NEGATIVE) mg/dL Urine Ketones (NEGATIVE) mg/dL Urine Occult Blood (NEGATIVE) Urine Nitrite (NEGATIVE) Urine Bilirubin (NEGATIVE) Urine Urobilinogen (NORMAL) E.U./dL Ur Leukocyte Esterase (NEGATIVE) Ur Microscopic Review Urine Culture Comments Urine Opiates Screen (NEGATIVE) Ur Oxycodone Screen (NEGATIVE) Urine Methadone Screen (NEGATIVE) Ur Propoxyphene Screen (NEGATIVE) Ur Barbiturates Screen (NEGATIVE) Ur Tricyclics Screen (NEGATIVE) Ur Phencyclidine Scrn (NEGATIVE) Ur Amphetamine Screen (NEGATIVE) U Methamphetamines Scrn (NEGATIVE) U Benzodiazepines Scrn (NEGATIVE) Urine Cocaine Screen (NEGATIVE) U Cannabinoids Screen (NEGATIVE) Ethyl Alcohol mg/dL 02/02/18 02/02/18 02/02/18 Range/Units 18:28 18:28 18:28 Sodium (135-145) mmol/L Potassium (3.5-5.0) mmol/L Chloride (101-111) mmol/L Carbon Dioxide (21-32) mmol/L Anion Gap (6-13) BUN (6-20) mg/dL Creatinine (0.6-1.2) mg/dL Estimated GFR (MDRD) (>89) Glucose (70-100) mg/dL Glycated Hemoglobin 4.7 (4.6-6.2) % Estim Average Glucose 88 (70-100) Calcium (8.5-10.3) mg/dL Magnesium 1.8 (1.7-2.8) mg/dL Total Bilirubin (0.2-1.0) mg/dL GGT (8-55) IU/L AST (10-42) IU/L ALT (10-60) IU/L Alkaline Phosphatase (42-121) IU/L C-Reactive Protein (0-1.0) mg/dL B-Natriuretic Peptide (5-100) pg/mL Total Protein (6.7-8.2) g/dL Albumin (3.2-5.5) g/dL Globulin (2.1-4.2) g/dL Albumin/Globulin Ratio (1.0-2.2) Triglycerides ( - 149) mg/dL Cholesterol ( - 199) mg/dL LDL Cholesterol, Calc ( - 129) mg/dL VLDL Cholesterol mg/dL HDL Cholesterol (60 - ) mg/dL LDL/HDL Ratio (<3.6) Cholesterol/HDL Ratio (<5.0) Amylase (28-100) U/L Lipase (22-51) U/L TSH 1.97 (0.34-5.60) uIU/mL Urine Color Urine Clarity (CLEAR) Urine pH (5.0-7.5) PH Ur Specific [place] (1.002-1.030) Urine Protein (NEGATIVE) mg/dL Urine Glucose (UA) (NEGATIVE) mg/dL Urine Ketones (NEGATIVE) mg/dL Urine Occult Blood (NEGATIVE) Urine Nitrite (NEGATIVE) Urine Bilirubin (NEGATIVE) Urine Urobilinogen (NORMAL) E.U./dL Ur Leukocyte Esterase (NEGATIVE) Ur Microscopic Review Urine Culture Comments Urine Opiates Screen (NEGATIVE) Ur Oxycodone Screen (NEGATIVE) Urine Methadone Screen (NEGATIVE) Ur Propoxyphene Screen (NEGATIVE) Ur Barbiturates Screen (NEGATIVE) Ur Tricyclics Screen (NEGATIVE) Ur Phencyclidine Scrn (NEGATIVE) Ur Amphetamine Screen (NEGATIVE) U Methamphetamines Scrn (NEGATIVE) U Benzodiazepines Scrn (NEGATIVE) Urine Cocaine Screen (NEGATIVE) U Cannabinoids Screen (NEGATIVE) Ethyl Alcohol < 5.0 mg/dL 02/02/18 02/02/18 02/02/18 Range/Units 18:28 18:28 18:28 Sodium 136 (135-145) mmol/L Potassium 3.5 (3.5-5.0) mmol/L Chloride 104 (101-111) mmol/L Carbon Dioxide 25 (21-32) mmol/L Anion Gap 7.0 (6-13) BUN 16 (6-20) mg/dL Creatinine 0.9 (0.6-1.2) mg/dL Estimated GFR (MDRD) 94 (>89) Glucose 91 (70-100) mg/dL Glycated Hemoglobin (4.6-6.2) % Estim Average Glucose (70-100) Calcium 7.8 L (8.5-10.3) mg/dL Magnesium (1.7-2.8) mg/dL Total Bilirubin 1.6 H (0.2-1.0) mg/dL GGT 23 (8-55) IU/L AST 17 (10-42) IU/L ALT 26 (10-60) IU/L Alkaline Phosphatase 41 L (42-121) IU/L C-Reactive Protein 3.0 H (0-1.0) mg/dL B-Natriuretic Peptide 37 (5-100) pg/mL Total Protein 6.7 (6.7-8.2) g/dL Albumin 3.3 (3.2-5.5) g/dL Globulin 3.4 (2.1-4.2) g/dL Albumin/Globulin Ratio 1.0 (1.0-2.2) Triglycerides ( - 149) mg/dL Cholesterol ( - 199) mg/dL LDL Cholesterol, Calc ( - 129) mg/dL VLDL Cholesterol mg/dL HDL Cholesterol (60 - ) mg/dL LDL/HDL Ratio (<3.6) Cholesterol/HDL Ratio (<5.0) Amylase 53 (28-100) U/L Lipase 26 (22-51) U/L TSH (0.34-5.60) uIU/mL Urine Color Urine Clarity (CLEAR) Urine pH (5.0-7.5) PH Ur Specific [place] (1.002-1.030) Urine Protein (NEGATIVE) mg/dL Urine Glucose (UA) (NEGATIVE) mg/dL Urine Ketones (NEGATIVE) mg/dL Urine Occult Blood (NEGATIVE) Urine Nitrite (NEGATIVE) Urine Bilirubin (NEGATIVE) Urine Urobilinogen (NORMAL) E.U./dL Ur Leukocyte Esterase (NEGATIVE) Ur Microscopic Review Urine Culture Comments Urine Opiates Screen (NEGATIVE) Ur Oxycodone Screen (NEGATIVE) Urine Methadone Screen (NEGATIVE) Ur Propoxyphene Screen (NEGATIVE) Ur Barbiturates Screen (NEGATIVE) Ur Tricyclics Screen (NEGATIVE) Ur Phencyclidine Scrn (NEGATIVE) Ur Amphetamine Screen (NEGATIVE) U Methamphetamines Scrn (NEGATIVE) U Benzodiazepines Scrn (NEGATIVE) Urine Cocaine Screen (NEGATIVE) U Cannabinoids Screen (NEGATIVE) Ethyl Alcohol mg/dL 02/02/18 02/02/18 Range/Units 17:10 17:10 Sodium (135-145) mmol/L Potassium (3.5-5.0) mmol/L Chloride (101-111) mmol/L Carbon Dioxide (21-32) mmol/L Anion Gap (6-13) BUN (6-20) mg/dL Creatinine (0.6-1.2) mg/dL Estimated GFR (MDRD) (>89) Glucose (70-100) mg/dL Glycated Hemoglobin (4.6-6.2) % Estim Average Glucose (70-100) Calcium (8.5-10.3) mg/dL Magnesium (1.7-2.8) mg/dL Total Bilirubin (0.2-1.0) mg/dL GGT (8-55) IU/L AST (10-42) IU/L ALT (10-60) IU/L Alkaline Phosphatase (42-121) IU/L C-Reactive Protein (0-1.0) mg/dL B-Natriuretic Peptide (5-100) pg/mL Total Protein (6.7-8.2) g/dL Albumin (3.2-5.5) g/dL Globulin (2.1-4.2) g/dL Albumin/Globulin Ratio (1.0-2.2) Triglycerides ( - 149) mg/dL Cholesterol ( - 199) mg/dL LDL Cholesterol, Calc ( - 129) mg/dL VLDL Cholesterol mg/dL HDL Cholesterol (60 - ) mg/dL LDL/HDL Ratio (<3.6) Cholesterol/HDL Ratio (<5.0) Amylase (28-100) U/L Lipase (22-51) U/L TSH (0.34-5.60) uIU/mL Urine Color ORANGE Urine Clarity CLEAR (CLEAR) Urine pH 6.0 (5.0-7.5) PH Ur Specific [place] 1.025 (1.002-1.030) Urine Protein TRACE (NEGATIVE) mg/dL Urine Glucose (UA) NEGATIVE (NEGATIVE) mg/dL Urine Ketones 15 H (NEGATIVE) mg/dL Urine Occult Blood NEGATIVE (NEGATIVE) Urine Nitrite NEGATIVE (NEGATIVE) Urine Bilirubin NEGATIVE (NEGATIVE) Urine Urobilinogen 0.2 (NORMAL) (NORMAL) E.U./dL Ur Leukocyte Esterase NEGATIVE (NEGATIVE) Ur Microscopic Review NOT INDICATED Urine Culture Comments NOT INDICATED Urine Opiates Screen POSITIVE H (NEGATIVE) Ur Oxycodone Screen POSITIVE H (NEGATIVE) Urine Methadone Screen NEGATIVE (NEGATIVE) Ur Propoxyphene Screen NEGATIVE (NEGATIVE) Ur Barbiturates Screen NEGATIVE (NEGATIVE) Ur Tricyclics Screen NEGATIVE (NEGATIVE) Ur Phencyclidine Scrn NEGATIVE (NEGATIVE) Ur Amphetamine Screen NEGATIVE (NEGATIVE) U Methamphetamines Scrn NEGATIVE (NEGATIVE) U Benzodiazepines Scrn NEGATIVE (NEGATIVE) Urine Cocaine Screen NEGATIVE (NEGATIVE) U Cannabinoids Screen NEGATIVE (NEGATIVE) Ethyl Alcohol mg/dL - Diagnostic Imaging Diagnostic Imaging Results: positive: Final report reviewed ABX Reporting Has patient been on IV antibiotics over the past 48 hours?: No Assessment/Plan - Problem List (1) Acute pancreatitis Impression: As per preliminary abdominal CT, this appears to be pancreatitits. He has now been changed to inpatient for continued pain, and lack of improvement. HIDA scan is ordered to evaluate for gall stones, although his pain is not in this region. The patient is not jaundice, and has normal pancreatic enzymes of amylase and lipase, and a normal WBC count. He has a history of a fatty liver that is confirmed on abdominal CT. Plan: Continue to treat accordingly, will call GI in the AM to review case. Qualifiers: Pancreatitis type: idiopathic (2) Hypertension Impression: The patient is prescribed HCTZ and amlodipine at home for hypertension. Today, his blood pressure is elevated at 140/87, so the Norvasc dose is doubled to 5mg. HCTZ has been discontinued as thiazides are considered as a possible cause of pancreatitits. Plan: Continue Norvasc at the increased dose and monitor vital signs. Qualifiers: Hypertension type: essential hypertension Qualified Code(s): I10 - Essential (primary) hypertension (3) Abdominal pain Impression: The patient rates his abdominal pain as improved and points to his upper abdomen and left mid abdomen. Plan: treat with IV dilaudid, IV protonix, IV reglan, and scheduled IV tylenol. Full liquids. (4) Intractable cyclical vomiting with nausea Impression: The patient has had this accompanied by abdominal pain. He is prescribed zofran and compazine as needed, and these symptoms are nearly resolved. Plan: continue IV meds for symptom control. (5) CHARO (obstructive sleep apnea) Impression: The patient states that he has had CHARO for the past 2 years and has been compliant with his home unit that is at his bedside. He denies other chronic lung diseases such as asthma, or recent pneumonia. Respiratory care to manage home unit order to ensure safety of use. A bedside echo was obtained and preliminary results show a severely enlarged RA, and the pulmonary pressure was not measurable. Plan: Continue home CPAP. (6) Chronic sinusitis Impression: Upon exam on admission, the patient is noted to have +light reflex noted on bilateral tympanic membranes, fluid noted behind both. The patient admits to ongoing ear pain and mild hearing loss in his left ear, that has improved with treatment. He admits to seeing his [facility] Plan: Afrin spray x3 days, nasal saline PRN and scheduled Nasonex. Qualifiers: Sinusitis location: unspecified location Qualified Code(s): J32.9 - Chronic sinusitis, unspecified (7) Fatty liver Impression: The patient admits to a history of this and as per abdominal CT report it states there is moderate hepatic steatosis. His biggest risk factor of progression of HUTCHINS is his elevated BMI of 31.2, and increased waist circumference. Plan: Patient should consider a weight loss management program at a later point.
[2018-02-03] MEDS: GI COCKTAIL 120 ML BOTTLE PO SCH ×2 (16:51→20:47)
[2018-02-03] MEDS: MAGNESIUM OXIDE 400 MG TABLET PO SCH (16:52)
[2018-02-03] MEDS: ENOXAPARIN 40 MG/0.4 ML SYRINGE SUBQ SCH (18:06)
[2018-02-03] MEDS ORDERED: MONTELUKAST 10 MG TABLET PO SCH (21:00)
[2018-02-04] MEDS: ACETAMINOPHEN 1,000 MG/100 ML 100 ML IV SCH ×3 (02:37→15:00)
[2018-02-04] MEDS: NS W/20 MEQ KCL 1,000 ML IV SCH ×2 (05:47→15:03)
[2018-02-04 06:15] LABS: BASOPHILS # (AUTO) 0.1 10^3/uL (0.0-0.1); BASOPHILS % (AUTO) 0.7 %; EOSINOPHILS # (AUTO) 0.1 10^3/uL (0.0-0.7); EOSINOPHILS % (AUTO) 1.5 %; HGB - HEMOGLOBIN 14.2 g/dL (14.0-18.0); LYMPHOCYTES # (AUTO) 2.3 10^3/uL (1.5-3.5); LYMPHOCYTES % (AUTO) 23.6 %; MEAN CORPUSCULAR HEMOGLOBIN 30.8 pg (27.0-31.0); MEAN CORPUSCULAR HGB CONC 34.7 g/dL (32.0-36.0); MEAN CORPUSCULAR VOLUME 88.6 fL (80.0-94.0); MEAN PLATELET VOLUME 8.3 fL (7.4-11.4); MONOCYTES % (AUTO) 10.5 %; NEUTROPHILS # (AUTO) 6.2 10^3/uL (1.5-6.6); NEUTROPHILS % (AUTO) 63.7 %; PLT - PLATELET COUNT 166 10^3/uL (130-450); RED CELL DISTRIBUTION WIDTH 13.5 % (12.0-15.0); WHITE BLOOD COUNT 9.7 x10^3/uL (4.8-10.8)
[2018-02-04 06:40] LABS: ALBUMIN 3.3 g/dL (3.2-5.5); ALBUMIN/GLOBULIN RATIO 0.8 (1.0-2.2); CALCIUM 8.2 mg/dL (8.5-10.3); CREATININE 0.9 mg/dL (0.6-1.2); TOTAL PROTEIN 7.3 g/dL (6.7-8.2)
[2018-02-04] MEDS ORDERED: PANTOPRAZOLE 40 MG TABLET PO SCH (07:00)
[2018-02-04 07:59] LABS: AMYLASE 43 U/L (28-100); LIPASE 30 U/L (22-51)
[2018-02-04] MEDS: MAGNESIUM OXIDE 400 MG TABLET PO SCH (09:01)
[2018-02-04] MEDS: FLUTICASONE NASAL SPRAY NAS SCH (09:02)
[2018-02-04] MEDS: METOCLOPRAMIDE 10 MG/2 ML VIAL IVP SCH ×3 (09:02→17:33)
[2018-02-04] MEDS: SPIRONOLACTONE 25 MG TABLET PO SCH (09:03)
[2018-02-04] MEDS: GI COCKTAIL 120 ML BOTTLE PO SCH (09:04)
[2018-02-04] MEDS: OXYMETAZOLINE NASAL SPRAY NAS SCH (09:04)
[2018-02-04] MEDS: SODIUM CHLORIDE FLUSH 0.9% 10 ML SYRINGE IVP SCH ×2 (09:05→17:34)
[2018-02-04] MEDS: SENNA SYRUP 8.8 MG/5 ML UDC PO SCH (09:05)
[2018-02-04] MEDS: POLYETHYLENE GLYCOL 3350 17 GM PACKET PO SCH (09:05)
--- NOTE | 2018-02-04 17:15 | DISCHARGE SUMMARY ---
Discharge Summary Admit Date: 02/02/18 Discharge Date: 02/04/18 Discharging Provider: POLLO Gregory Primary Care Provider: [facility] Code Status: Attempt Resuscitation Condition at Discharge: Good Discharge Disposition: 01 Home, Self Care - DIAGNOSES Admission Diagnoses: Other chronic pancreatitis (K86.1) Essential (primary) hypertension (I10) Unspecified abdominal pain (R10.9) Cyclical vomiting, not intractable (G43.A0) Obstructive sleep apnea (adult) (pediatric) (G47.33) Chronic sinusitis, unspecified (J32.9) Fatty (change of) liver, not elsewhere classified (K76.0) Discharge Diagnoses with Status of Each Condition: Pancreatitis, recurrent (K86.1) -nearly resolved. Hypertension (I10) -chronic, antihypertensives changed. Abdominal pain (R10.9) -improved. CHARO (obstructive sleep apnea) (G47.33) -chronic, stable. Chronic sinusitis (J32.9) -chronic, treatment to continue. Fatty liver (K76.0)- chronic, stable. - HPI History of Present Illness: Ghulam Bray is a well-appearing, mildly obese 37-year old male with a past medical history of HTN, fatty liver, GERD, chronic constipation, hemorrhoids, CHARO-wears CPAP at home, thoracic outlet syndrome-chronic numbness in bilateral fingertips, eczema, detached retina, pancreatititis, and erectile dysfunction. From August to October of this year he states that he followed the "keto diet", which sounds similar to the Atkins diet and actually was successful by losing 30 pounds. He just visited his PCP this past for URI symptoms and was prescribed Claritin and flonase spray. He came to the ED last evening after having epigastric abdominal pain, nausea, and vomiting. At first he thought it may have been caused by spicy chili that his made, but this pain was similar to pain that he had ~3 years ago because he also noted it to be radiating to his back side. An abdominal CT was completed in the ED which confirmed pancreatitits and he was sent home with zofran and pain medication. This pain continued and actually became worse after taking the oral medications, so he arrived again in the ED early this morning with the same symptoms accompanied by nausea and vomiting. WBC count was slightly elevated at 14.7, normal lipase, afebrile, mild hypertension at 138 /89, and an elevated bilirubin at 1.9. He will be admitted to observation to manage his symptoms and if he becomes worse a call to our GI team may occur. - HOSPITAL COURSE Hospital Course: The following diagnoses were prevalent during this stay: (1) Acute pancreatitis As per preliminary abdominal CT, this appears to be pancreatitits. He has now been changed to inpatient for continued pain, and lack of improvement. HIDA scan is ordered to evaluate for gall stones, although his pain is not in this region. The patient is not jaundice, and has normal pancreatic enzymes of amylase and lipase, and a normal WBC count. He has a history of a fatty liver that is confirmed on abdominal CT. All amylase and lipase labs remained normal for this hospital stay. GI completed a case review who recommends follow up with a GI specialist at a larger medical center for further work up at a later date and to abstain from ANY alcohol. (2) Hypertension The patient is prescribed HCTZ and amlodipine at home for hypertension. Today, his blood pressure is elevated at 140/87, so the Norvasc dose is doubled to 5mg. HCTZ has been discontinued as thiazides are considered as a possible cause of pancreatitits. The patient was continued on Norvasc at the increased dose and his vital signs were monitored. (3) Abdominal pain The patient rates his abdominal pain as improved and points to his upper abdomen and left mid abdomen. The patient was treated with IV dilaudid, IV protonix, IV reglan, and scheduled IV tylenol and slowly advanced the diet, and this was considered resolved at discharge. (4) Intractable cyclical vomiting with nausea The patient has had this accompanied by abdominal pain. He is prescribed zofran and compazine as needed, and these symptoms are resolved. (5) CHARO (obstructive sleep apnea) The patient states that he has had CHARO for the past 2 years and has been compliant with his home unit that is at his bedside. He denies other chronic lung diseases such as asthma, or recent pneumonia. Respiratory care to manage home unit order to ensure safety of use. A bedside echo was obtained and preliminary results show a severely enlarged RA, and the pulmonary pressure was not measurable. Continue home CPAP. (6) Chronic sinusitis Upon exam on admission, the patient is noted to have +light reflex noted on bilateral tympanic membranes, fluid noted behind both. The patient admits to ongoing ear pain and mild hearing loss in his left ear, that has improved with treatment. He admits to [facility] Afrin spray x3 days, nasal saline PRN and scheduled Nasonex. (7) Fatty liver The patient admits to a history of this and as per abdominal CT report it states there is moderate hepatic steatosis. His biggest risk factor of progression of HUTCHINS is his elevated BMI of 31.2, and increased waist circumference. Patient should consider a weight loss management program at a later point. Disposition: The patient was ambulatory, has driven to the hospital and in stable condition and almost pain free at the time of discharge. - ALLERGIES Allergies/Adverse Reactions: Allergies Allergy/AdvReac Type Severity Reaction Status Date / Time ampicillin Allergy Unknown Verified 02/02/18 11:57 - MEDICATIONS Home Medications: Ambulatory Orders Medication Instructions Recorded Confirmed Carboxymethylcellulose Sodium 1 drops EACHEYE PRN PRN 02/02/18 02/02/18 [Refresh Tears] Loratadine 10 mg PO DAILY 02/02/18 02/02/18 Montelukast Sodium 10 mg PO DAILY 02/02/18 02/02/18 Naphazoline HCl/Pheniramine 1 drops EACHEYE PRN PRN 02/02/18 02/02/18 [Naphcon-A Eye Drops] Omeprazole [Omeprazole] 20 mg PO QDAC 02/02/18 02/02/18 Sildenafil Citrate [Viagra] 50 mg PO PRN PRN 02/02/18 02/02/18 Sodium Chloride [Sodium Chloride] 1 drops EACHEYE PRN PRN 02/02/18 02/02/18 Sodium Chloride [Sodium Chloride] 1 drops EACHEYE PRN PRN 02/02/18 02/02/18 Fluticasone [Flonase] 2 sprays SARA DAILY PRN #5 bottle 02/04/18 Metoclopramide [Reglan] 10 mg PO Q6H #14 tablet 02/04/18 Pantoprazole [Protonix] 40 mg PO QDAC #30 tablet 02/04/18 Spironolactone [Aldactone] 25 mg PO DAILY #30 tablet 02/04/18 amLODIPine [Norvasc] 5 mg PO DAILY #30 tablet 02/04/18 - PHYSICAL EXAM AT DISCHARGE General Appearance: positive: No acute distress, Alert Eyes Bilateral: positive: Normal inspection, PERRL ENT: positive: ENT inspection nml, Pharynx nml, No signs of dehydration Neck: positive: Nml inspection, Thyroid nml, No JVD, Trachea midline Respiratory: positive: Chest non-tender, No respiratory distress, Breath sounds nml Cardiovascular: positive: Regular rate & rhythm, No murmur, No gallop Peripheral Pulses: positive: 2+ Abdomen: positive: Nml bowel sounds, Guarding, Other (obese, soft) Back: positive: Nml inspection Skin: positive: No rash, Warm, Dry Extremities: positive: Non-tender, Full ROM, Nml appearance, No pedal edema Neurologic/Psychiatric: positive: Oriented x3, CN's nml (2-12), Motor nml, Sensation nml, Mood/affect nml Reflexes: Bicep (R): 4+, Bicep (L): 4+ - LABS Result Diagrams: 02/04/18 05:52 02/04/18 06:24 - DIAGNOSTIC IMAGING Diagnostic Imaging Results: Prelim report reviewed, Final report reviewed Diagnostic Imaging Results Comments: Imaging upon admission indicated acute pancreatitits. EXAM: ABDOMEN ULTRASOUND LIMITED, RUQ EXAM DATE: 02/04/2018 06:19 PM. CLINICAL HISTORY: Gall stones. IMPRESSION: Negative right upper quadrant ultrasound. - FOLLOW UP Follow Up: Disposition: 01 Home, Self Care Condition: Good Prescriptions: amLODIPine [Norvasc] 5 mg PO DAILY #30 tablet Fluticasone [Flonase] 2 sprays SARA DAILY PRN #5 bottle PRN Reason: ALLERGIC RHINITIS Metoclopramide [Reglan] 10 mg PO Q6H #14 tablet Pantoprazole [Protonix] 40 mg PO QDAC #30 tablet Spironolactone [Aldactone] 25 mg PO DAILY #30 tablet Diet: Soft Activity Restrictions: No Restrictions Shower Restrictions: No Driving Restrictions: No Weight Bearing: Full Weight Instruction Topics: Pancreatitis, Pancreatitis Acute Dc Additional Instructions or Follow Up instructions: You were admitted for abdominal pain that radiated to your back. You were given IV fluids and pain medications. You began to tolerate food and had less pain. You should continue to take a proton pump inhibitor for now and avoid all other causes. You were found to have continued upper respiratory congestion and prescribed a nasal spray called Afrin for just 3 days, and started on a steroid nasal spray of Flonase or Nasonex. You should always use a daily spray due to your need for CPAP. General surgery, Dr. Umair Bonilla was called to review your case. He recommended an abdominal ultrasound as this test is most specific in looking for gall stones, which was negative. Please see your PCP within one week. Follow up with GI at a larger medical center due to Fatty liver. - TIME SPENT Time Spent in Discharge (Minutes): 60
[2018-02-04] MEDS ORDERED: amLODIPine 5 MG TABLET PO ONE (17:17)
--- NOTE | 2018-02-04 17:23 | Discharge Plan ---
Discharge Plan Disposition: 01 Home, Self Care Condition: Good Prescriptions: amLODIPine [Norvasc] 5 mg PO DAILY #30 tablet Fluticasone [Flonase] 2 sprays SARA DAILY PRN #5 bottle PRN Reason: ALLERGIC RHINITIS Metoclopramide [Reglan] 10 mg PO Q6H #14 tablet Pantoprazole [Protonix] 40 mg PO QDAC #30 tablet Spironolactone [Aldactone] 25 mg PO DAILY #30 tablet Diet: Soft Activity Restrictions: No Restrictions Shower Restrictions: No Driving Restrictions: No Weight Bearing: Full Weight Instruction Topics: Pancreatitis, Pancreatitis Acute Dc Additional Instructions or Follow Up instructions: You were admitted for abdominal pain that radiated to your back. You were given IV fluids and pain medications. You began to tolerate food and had less pain. You should continue to take a proton pump inhibitor for now and avoid all other causes. You were found to have continued upper respiratory congestion and prescribed a nasal spray called Afrin for just 3 days, and started on a steroid nasal spray of Flonase or Nasonex. You should always use a daily spray due to your need for CPAP. General surgery, Dr. Umair Bonilla was called to review your case. He recommended an abdominal ultrasound as this test is most specific in looking for gall stones. Final results may not be available, so if you are feeling better, you will be fine to return home. Please see your PCP within one week. No Smoking: If you smoke, Please STOP! Call for help. Follow-up with: Avelino Murillo MD [Primary Care Provider] -
[2018-02-04 18:38] VITALS: BP 148/88
--- NOTE | 2018-02-04 18:39 | Ultrasound Report ---
EXAM: ABDOMEN ULTRASOUND LIMITED, RUQ EXAM DATE: 02/04/2018 06:19 PM. CLINICAL HISTORY: Gall stones. COMPARISON: None. TECHNIQUE: Real-time scanning was performed with static images obtained. FINDINGS: Liver: Submitted images of liver demonstrate no focal lesions. Coarse hepatic echotexture is suggesti ve of steatosis. Main portal vein flow: Hepatopetal. Gallbladder: No stones, wall thickening, or sonographic Roldan's sign. Biliary System: CBD measures 6 mm. No intrahepatic or extrahepatic ductal dilatation. Other: The visualized pancreas and right kidney are unremarkable. IMPRESSION: Negative right upper quadrant ultrasound. [facility] Referring Provider Line: [phone] SITE ID: [id number]
== END 2018-02-04 18:55 | disposition home or self-care (01) | DRG 440 ==
LOC: ED 11:41 → MS2 13:38 → OBSVTOIN 02-03 14:29
PROVIDERS: ADMIT Nurse Practitioner; ATTEND Nurse Practitioner
DX: K85.00 Idiopathic acute pancreatitis without necrosis or infection (principal); I10 Essential (primary) hypertension; G47.33 Obstructive sleep apnea (adult) (pediatric); J32.9 Chronic sinusitis, unspecified; K76.0 Fatty (change of) liver, not elsewhere classified; E66.9 Obesity, unspecified; Z68.31 Body mass index [BMI] 31.0-31.9, adult; K21.9 Gastro-esophageal reflux disease without esophagitis; K59.09 Other constipation; K64.9 Unspecified hemorrhoids; G54.0 Brachial plexus disorders; N52.9 Male erectile dysfunction, unspecified; Z86.69 Personal history of other diseases of the nervous system and sense organs; Z87.891 Personal history of nicotine dependence
CPT/HCPCS: 36415; 74177; 76705; 80053; 80061; 80306; 80320; 81001; 81003; 82150; 82977; 83036; 83690; 83721; 83735; 83880; 84443; 84478; 85025; 86140; 87086; 93306; 96361; 96365; 96366; 96368; 96372; 96374; 96375; 96376; 99283; 99284; 99285

== ENCOUNTER 2018-09-21 08:38 | Emergency (ER) | payer OTHER ==
[2018-09-21] MEDS ORDERED: ONDANSETRON 4 MG/2 ML VIAL IVP STA (09:04)
[2018-09-21] MEDS ORDERED: SODIUM CHLORIDE 0.9% 1,000 ML IV ONE (09:04)
[2018-09-21] MEDS ORDERED: HYDROmorphone 1 MG/ML CARPUJECT IVP STA (09:04)
--- NOTE | 2018-09-21 09:07 | ED Physician Documentation ---
PD HPI NVD - Stated complaint Stated Complaint: SIDE PX/NAUSEA - Chief complaint Chief Complaint: Abd Pain - History obtained from History obtained from: Patient - History of Present Illness Timing - onset: How many days ago (2) Timing - duration: Days (2) Timing - details: Gradual onset, Still present Associated symptoms: Abdominal pain, Loss of appetite Contributing factors: No: Sick contact, Bad food, Travel, Recent antibiotics, Alcohol use, Anticoagulated, Diabetes Improved by: Meds Worsened by: Eating, Position, Palpation Similar symptoms before: Diagnosis (pancreatitis) Recently seen: Not recently seen - Additonal information Additional information: 38-year-old male with history of pancreatitis twice previously was most recently admitted in January of last year for about 4 days with pancreatitis that showed up on his CT scan. Over the past several days the patient has developed pain again in the left abdomen radiating to his back similar to what is had previously with pancreatitis. He states that he has had a number of these episodes since January of last year that have all resolved within the day. These episodes this time if not resolved is coming to the emergency department for evaluation. He has had some vomiting is not had a bowel movement in 2 days. He denies any use of alcohol and he has stopped using the hydrochlorothiazide. PD PAST MEDICAL HISTORY - Past Medical History Cardiovascular: Hypertension Respiratory: Sleep apnea, CPAP use Neuro: Headaches Endocrine/Autoimmune: None GI: GERD, Chronic constipation, Hemorrhoids [employer]EDIT [employer] MANAGER: None : Other HEENT: Chronic sinusitis Psych: None Musculoskeletal: Other Derm: None - Past Surgical History Past Surgical History: Yes Ortho: Shoulder arthroplasty - Present Medications Home Medications: Ambulatory Orders Medication Instructions Recorded Confirmed Loratadine 10 mg PO DAILY 02/02/18 02/02/18 Omeprazole 20 mg PO QDAC 02/02/18 02/02/18 Spironolactone [Aldactone] 25 mg PO DAILY #30 tablet 02/04/18 Hydrocodone/Acetaminophen 1 - 2 each PO Q6H PRN #14 tablet 09/21/18 [Hydrocodon-Acetaminophen 5-325] Ondansetron Odt [Zofran] 4 mg TL Q6H PRN #10 tablet 09/21/18 - Allergies Allergies/Adverse Reactions: Allergies Allergy/AdvReac Type Severity Reaction Status Date / Time ampicillin Allergy Unknown Verified 09/21/18 08:53 - Social History Does the pt smoke?: No Smoking Status: Never smoker Does the pt drink ETOH?: Yes Does the pt have substance abuse?: No - Immunizations Immunizations are current?: Yes - POLST Patient has POLST: No POLST Status: Full Code PD ED PE NORMAL - Vitals Vital signs reviewed: Yes (hypertensive ) - General General: Alert and oriented X 3, Well developed/nourished, Other (workforce consultant tone and flat affect belie pain ) - HEENT HEENT: Atraumatic, PERRL, EOMI - Neck Neck: Supple, no meningeal sign, No bony TTP - Cardiac Cardiac: RRR, No murmur - Respiratory Respiratory: No respiratory distress, Clear bilaterally - Abdomen Abdomen: Soft, Other (mild tenderness to the left upper quadrant. ) - Back Back: No spinal TTP, Other (left CVA tenderness) - Derm Derm: Normal color, Warm and dry - Extremities Extremities: No deformity, No edema - Neuro Neuro: Alert and oriented X 3, cremator 2-12 intact, No motor deficit, No sensory deficit, Normal speech Eye Opening: Spontaneous Motor: Obeys Commands Verbal: Oriented GCS Score: 15 - Psych Psych: Normal mood, Normal affect Results - Vitals Vitals: Vital Signs - 24 hr 09/21/18 09/21/18 09/21/18 08:51 09:24 10:51 Temperature 37.3 C Heart Rate 73 85 83 Respiratory 16 18 18 Rate Blood Pressure 171/110 H 160/106 H 152/97 H O2 Saturation 95 95 99 Oxygen O2 Source Room air - Labs Labs: Laboratory Tests 09/21/18 09/21/18 09/21/18 09:15 09:15 09:15 WBC 13.3 H RBC 5.55 Hgb 17.0 Hct 47.3 MCV 85.2 MCH 30.7 MCHC 36.1 H RDW 14.1 Plt Count 186 MPV 9.0 Neut # (Auto) 9.8 H Lymph # (Auto) 2.3 [place] # (Auto) 1.0 Eos # (Auto) 0.1 Baso # (Auto) 0.1 Absolute Nucleated RBC 0.11 Nucleated RBC % 0.8 Sodium 136 Potassium 3.8 Chloride 102 Carbon Dioxide 26 Anion Gap 8.0 BUN 14 Creatinine 0.9 Estimated GFR (MDRD) 94 Glucose 111 H Calcium 8.9 Total Bilirubin 1.3 H AST 26 ALT 48 Alkaline Phosphatase 57 Troponin I < 0.04 Total Protein 8.1 Albumin 4.7 Globulin 3.4 Albumin/Globulin Ratio 1.4 Lipase 34 Urine Color Urine Clarity Urine pH Ur Specific [place] Urine Protein Urine Glucose (UA) Urine Ketones Urine Occult Blood Urine Nitrite Urine Bilirubin Urine Urobilinogen Ur Leukocyte Esterase Ur Microscopic Review Urine Culture Comments 09/21/18 09:15 WBC RBC Hgb Hct MCV MCH MCHC RDW Plt Count MPV Neut # (Auto) Lymph # (Auto) [place] # (Auto) Eos # (Auto) Baso # (Auto) Absolute Nucleated RBC Nucleated RBC % Sodium Potassium Chloride Carbon Dioxide Anion Gap BUN Creatinine Estimated GFR (MDRD) Glucose Calcium Total Bilirubin AST ALT Alkaline Phosphatase Troponin I Total Protein Albumin Globulin Albumin/Globulin Ratio Lipase Urine Color YELLOW Urine Clarity CLEAR Urine pH 6.0 Ur Specific [place] 1.025 Urine Protein TRACE Urine Glucose (UA) NEGATIVE Urine Ketones NEGATIVE Urine Occult Blood NEGATIVE Urine Nitrite NEGATIVE Urine Bilirubin NEGATIVE Urine Urobilinogen 0.2 (NORMAL) Ur Leukocyte Esterase NEGATIVE Ur Microscopic Review NOT INDICATED Urine Culture Comments NOT INDICATED Procedures - IVC sono (time) 0900 Bedside IVC sono: IVC measures (cm) (1.2), IVC collapsed c insp (cm) (complete), Dehydration (est 1 liter deficit) PD MEDICAL DECISION MAKING - ED course Complexity details: considered differential, d/w patient ED course: 38-year-old male with a history of pancreatitis has pain nausea and vomiting is mildly dehydrated. He is administered saline Dilaudid and Zofran as well as saline. The patient feels improved and would like to try out patient management. He has done this previously and had to return for admission. Despite this he is wanting to try again today and this seems appropriate. Departure - Departure Disposition: 01 Home, Self Care Clinical Impression: Cyclical vomiting with nausea Qualifiers: Vomiting Intractability: non-intractable Qualified Code(s): G43.A0 - Cyclical vomiting, not intractable Condition: Stable Instructions: ED Nausea Vomiting Follow-Up: [facility]all[facility] [Provider Group] Prescriptions: Hydrocodone/Acetaminophen [Hydrocodon-Acetaminophen 5-325] 1 - 2 each PO Q6H PRN #14 tablet PRN Reason: pain Ondansetron Odt [Zofran] 4 mg TL Q6H PRN #10 tablet PRN Reason: Nausea / Vomiting
[2018-09-21 09:22] LABS: BASOPHILS # (AUTO) 0.1 10^3/uL (0.0-0.1); BASOPHILS % (AUTO) 0.5 %; EOSINOPHILS # (AUTO) 0.1 10^3/uL (0.0-0.7); EOSINOPHILS % (AUTO) 1.1 %; LYMPHOCYTES # (AUTO) 2.3 10^3/uL (1.5-3.5); LYMPHOCYTES % (AUTO) 17.2 %; MEAN CORPUSCULAR HEMOGLOBIN 30.7 pg (27.0-31.0); MEAN CORPUSCULAR HGB CONC 36.1 g/dL (32.0-36.0); MEAN CORPUSCULAR VOLUME 85.2 fL (80.0-94.0); MONOCYTES % (AUTO) 7.8 %; NEUTROPHILS # (AUTO) 9.8 10^3/uL (1.5-6.6); NEUTROPHILS % (AUTO) 73.4 %; PLT - PLATELET COUNT 186 10^3/uL (130-450); RED BLOOD COUNT 5.55 10^6/uL (4.70-6.10); RED CELL DISTRIBUTION WIDTH 14.1 % (12.0-15.0); WHITE BLOOD COUNT 13.3 x10^3/uL (4.8-10.8)
[2018-09-21 09:34] LABS: ALBUMIN 4.7 g/dL (3.2-5.5); ALBUMIN/GLOBULIN RATIO 1.4 (1.0-2.2); BILIRUBIN,TOTAL 1.3 mg/dL (0.2-1.0); CALCIUM 8.9 mg/dL (8.5-10.3); CREATININE 0.9 mg/dL (0.6-1.2); TOTAL PROTEIN 8.1 g/dL (6.7-8.2)
[2018-09-21 09:35] LABS: BILIRUBIN,URINE NEGATIVE (NEGATIVE); GLUCOSE, URINE (UA) NEGATIVE (NEGATIVE); KETONES,URINE (UA) NEGATIVE (NEGATIVE); LEUKOCYTE ESTERASE, URINE NEGATIVE (NEGATIVE); NITRITE,URINE NEGATIVE (NEGATIVE); OCCULT BLOOD,URINE NEGATIVE (NEGATIVE); PROTEIN,URINE TRACE mg/dL (NEGATIVE); UROBILINOGEN,URINE 0.2 (NORMAL) E.U./dL (NORMAL)
[2018-09-21 09:38] LABS: CLARITY,URINE CLEAR (CLEAR)
[2018-09-21 12:22] VITALS: BP 154/90
== END 2018-09-21 12:22 | disposition home or self-care (01) ==
LOC: ED 08:38
DX: E86.0 Dehydration (principal); G43.A0 Cyclical vomiting, in migraine, not intractable; I10 Essential (primary) hypertension
CPT/HCPCS: 36415; 80053; 81003; 83690; 84484; 85025; 96361; 96374; 99283; J1170; 81001; 87086